=== PATIENT | female | born 1940 | race Caucasian/White ===

== ENCOUNTER 2017-10-11 15:03 | Day surgery (SDC) | payer MEDICARE, BC ==
[~2017-10-11] VITALS: Ht 157.5 cm; Wt 59.4 kg
[2017-10-11] MEDS ORDERED: MACROBID 1100 MG/CAP PO (15:27)
[2017-10-11] MEDS ORDERED: SYNTHROID0.05 MG/TA PO (15:27)
[2017-10-11] MEDS ORDERED: LASIX 20MG TABL20 MG PO (15:28)
[2017-10-11] MEDS ORDERED: PRINIVIL10 MG PO (15:28)
[2017-10-11] MEDS ORDERED: KLOR-CON M2020 MEQ PO (15:28)
[2017-10-11] MEDS ORDERED: TOPROL XL 25MG25 MG PO (15:29)
[2017-10-11] MEDS ORDERED: GLUCOPHAGE500 MG/TAB PO (15:30)
[2017-10-11] MEDS ORDERED: CRESTOR 10MG10 MG PO (15:30)
[2017-10-11] MEDS ORDERED: PROLIA60 MG/ML SQ (15:31)
[2017-10-11] MEDS ORDERED: MULTI VITAMINS1 TAB PO (15:32)
[2017-10-11 15:57] VITALS: BP 132/61; PULSE 57; TEMP 97.4
[2017-10-11 19:03] VITALS: TEMP 98.2
[2017-10-11 19:20] VITALS: BP 123/55; PULSE 69
[2017-10-11 19:35] VITALS: BP 119/95; PULSE 76
[2017-10-11] MEDS ORDERED: COLACE 100100 MG/CAP PO (19:50)
[2017-10-11] MEDS ORDERED: PYRIDIUM 100MG100 MG PO (19:50)
[2017-10-11] MEDS ORDERED: NORCO 325 MG-51 TAB PO (19:51)
== END 2017-10-11 20:05 | disposition home or self-care (01) ==
LOC: SDCO 15:03
DX: N20.1 Calculus of ureter (principal); F32.9 Major depressive disorder, single episode, unspecified; K21.9 Gastro-esophageal reflux disease without esophagitis; K44.9 Diaphragmatic hernia without obstruction or gangrene; E03.9 Hypothyroidism, unspecified; M81.0 Age-related osteoporosis without current pathological fracture; E11.9 Type 2 diabetes mellitus without complications; Z79.84 Long term (current) use of oral hypoglycemic drugs; Z88.8 Allergy status to other drugs, medicaments and biological substances; Z87.891 Personal history of nicotine dependence; Z83.3 Family history of diabetes mellitus; Z82.49 Family history of ischemic heart disease and other diseases of the circulatory system
CPT/HCPCS: C1769; C2617; J0690; J1100; J2405; J2704; J2765; J3010; J7120; Q9967

== ENCOUNTER 2017-10-28 14:12 | Day surgery (SDC) | payer MEDICARE, BC ==
[~2017-10-28] VITALS: Ht 157.5 cm; Wt 56.2 kg
[~2017-10-28 14:12] MED LIST: CALCIUM 600/VIT1 CAP PO; COLACE 100100 MG/CAP PO; CRESTOR 10MG10 MG PO; GLUCOPHAGE500 MG/TAB PO; KLOR-CON M2020 MEQ PO; LASIX 20MG TABL20 MG PO; MACROBID 1100 MG/CAP PO; MULTI VITAMINS1 TAB PO; NORCO 325 MG-51 TAB PO; OCUVITE1 TA1 PO; OMEGA-31 SGL PO; PRINIVIL10 MG PO; PROLIA60 MG/ML SQ; PYRIDIUM 100MG100 MG PO; SYNTHROID0.05 MG/TA PO; TOPROL XL 25MG25 MG PO
[2017-10-28 15:22] VITALS: BP 117/56; PULSE 72; TEMP 97.7
[2017-10-28 19:26] VITALS: TEMP 97
[2017-10-28 19:53] VITALS: BP 113/81; PULSE 97
[2017-10-28 20:23] VITALS: BP 112/76; PULSE 87
[2017-10-28 21:23] VITALS: BP 108/74; PULSE 90
[2017-10-28 22:23] VITALS: BP 101/81; PULSE 86
== END 2017-10-28 21:55 | disposition home or self-care (01) ==
LOC: SDCO 14:12 → SURG 19:37 → SDCO 21:55
DX: N20.0 Calculus of kidney (principal); E10.9 Type 1 diabetes mellitus without complications; Z79.84 Long term (current) use of oral hypoglycemic drugs; E03.9 Hypothyroidism, unspecified; M81.0 Age-related osteoporosis without current pathological fracture; K21.9 Gastro-esophageal reflux disease without esophagitis; Z87.891 Personal history of nicotine dependence; Z83.3 Family history of diabetes mellitus; Z82.49 Family history of ischemic heart disease and other diseases of the circulatory system
CPT/HCPCS: OP; C1769; C2617; J0690; J1100; J2405; J2704; J3010; J7030; J7120